=== PATIENT | male | born 1945 | race African-American/Black ===

== ENCOUNTER → 2017-04-15 | Outpatient (CLI) | payer OTHER ==
--- NOTE | ~2017-04-15 | PFR/MVV ---
[facility] [place] [address] PULMONARY FUNCTION MVV/REPORT Name: SATCY ROSE Room #: [facility]#: [id number] Admission: 04/15/17 Attend Phys: Rubén Duke MD, [facility] Discharge: Date of : 43 Report #: [id number] THIS REPORT FOR: //name// COPIES FOR: AGE: 71 SEX/RACE: M/B >> SPIROMETRY: (BTPS) Height: 73.0 in cm Weight: 180 lbs kg Exam Date: 04/15/17 PRE-RX POST-RX PRED BEST %PRED BEST %PRED %CHG FVC LITERS . 3.82 . 4.05 . 106 . 3.75 . 98 . -8 FEV1 LITERS . 2.97 . 3.16 . 106 . 3.23 . 109 . 2 FEV1/FVC % . 77 . 78 . 101 . 86 . 111 . 11 BGJ89-96% L/Sec . 3.58 . 2.89 . 81 . 3.93 . 110 . 36 PEF L/SEC . 8.91 . 8.07 . 91 . 5.70 . 64 . -29 FEF50/FIF50 UNITLESS . <1.00 . 0.73 . . 0.73 . . -1 MVV L/Min . 135 . 101 . 75 f 1/Min . . 115 . >> LUNG VOLUMES: (BTPS) PRE-RX POST-RX PRED AVG %PRED AVG %PRED %CHG VC Liters . 3.82 . 4.05 . 106 . . . TLC Liters . 7.20 . 6.51 . 91 . . . RV Liters . 2.78 . 2.46 . 89 . . . RV/TLC % . 41 . 38 . 91 . . . FRC [address] Liters . 4.25 . 3.48 . 82 . . . FRC N2 Liters . 4.25 . . . . . ERV Liters . . 1.02 . . . . IC Liters . . 2.92 . . . . >> DIFFUSION: DLCO ml/Min/mmHg . 21.5 . 16.8 . 78 . . . DL Gary ml/Min/mmHg . 21.5 . 16.8 . 78 . . . DLCO/VA ml/Min/mmHg . 3.53 . 3.05 . 86 . . . VA Liters . . 5.50 . . . . [facility] [address] [place] [address] PULMONARY FUNCTION MVV/REPORT Name: STACY ROSE Room #: [facility]#: [id number] Admission: 04/15/17 Attend Phys: Rubén Duke MD, [facility] Discharge: Date of : 43 Report #: [id number] COMMENTS: COMMENTS: >> RESISTANCE: PRE-RX PRED AVG %PRED Raw Total cmH20/L/Sec . . 7.07 . Raw Insp cmH20/L/Sec . . 6.10 . Raw Exp cmH20/L/Sec . . 4.44 . Raw cmH20/L/Sec . 1.02 . 3.74 . 368 Gaw L/Sec/cmH20 . 1.019 . 0.268 . 26 sRaw cmH20 Sec . 4.31 . 10.80 . 251 sGaw l/cmH20 Sec . 0.232 . 0.093 . 40 Vtq Liters . . 2.89 . # = OUTSIDE 95% CONFIDENCE INTERVAL CALIBRATION: PRED: 3.00 ACTUAL: EXP 3.01 INSP 3.02 [facility]-OL10-06 [facility]-05 N-1804-4 >> INTERPRETATION/IMPRESSION: CC: Rubén Villela DATE OF SERVICE: 04/15/2017 Pulmonary function study was essentially within normal limits. There is improvement in IIT44-26% post-bronchodilator. <ELECTRONICALLY SIGNED> By: Nu Camargo MD 04/30/17 2213 Nu Camargo MD /nt
== END ==
LOC: PUL 09:46
DX: I48.2 Chronic atrial fibrillation (principal)